=== PATIENT | male | born 1995 | race African-American/Black ===

== ENCOUNTER 2022-07-18 21:45 | Emergency (ER) | payer BC ==
[~2022-07-18] VITALS: Ht 157.5 cm; Wt 75.3 kg
[2022-07-18] MEDS ORDERED: DOXYCYCLINE HY100 MG PO (22:42)
== END 2022-07-18 23:00 | disposition home or self-care (01) ==
LOC: FSED 22:15
DX: L03.114 Cellulitis of left upper limb (principal); F17.210 Nicotine dependence, cigarettes, uncomplicated
CPT/HCPCS: 99282

== ENCOUNTER 2024-08-09 04:17 | Emergency (ER) | payer BC, OTHER ==
[~2024-08-09] VITALS: Ht 162.6 cm; Wt 72.1 kg
[~2024-08-09 04:17] MED LIST: DOXYCYCLINE HY100 MG PO
[2024-08-09] MEDS ORDERED: BACTRIM DS TAB1 EACH PO (05:03)
[2024-08-09 05:26] VITALS: PULSE 94; RESP 18; TEMP 98.1; O2SAT 98
[2024-08-09] MEDS: IBUPROFEN 400 MG TAB PO ONE (05:43)
== END 2024-08-09 05:44 | disposition home or self-care (01) ==
LOC: FSED 05:03
DX: J34.0 Abscess, furuncle and carbuncle of nose (principal); F17.210 Nicotine dependence, cigarettes, uncomplicated
CPT/HCPCS: 99282